=== PATIENT | male | born 1955 | race African-American/Black ===

== ENCOUNTER 2017-07-08 18:27 | Emergency (ER) | payer SELFPAY ==
[~2017-07-08] VITALS: Ht 172.7 cm; Wt 68.0 kg
[2017-07-08] MEDS ORDERED: PROPARACAINE 0.5% OPHTH SOLUTION 15ML BOTTLE. OU ONE (19:45)
[2017-07-08 21:14] LABS: BASO % 0 % (0-3); EOS % 1 % (0-3); HEMATOCRIT 42.4 % (39.0-53.0); HEMOGLOBIN 13.6 g/dL (13.0-17.5); LYMPH % 13 % (24-48); MEAN CORPUSCULAR HEMOGLOBIN 30 pg (25-35); MEAN CORPUSCULAR HGB CONC 32 g/dL (31-37); MEAN CORPUSCULAR VOLUME 92 fL (79-100); MONO % 8 % (0-9); NEUT % 78 % (31-73); PLATELET COUNT 256 x10^3/uL (140-400); RED CELL DISTRIBUTION WIDTH 13.1 % (11.5-14.5); WHITE BLOOD COUNT 7.6 x10^3/uL (4.0-11.0)
[2017-07-08 21:27] LABS: CALCIUM 8.8 mg/dL (8.5-10.1); CREATININE 0.9 mg/dL (0.7-1.3); GFR 103.1; POTASSIUM 4.1 mmol/L (3.5-5.1)
[2017-07-08 21:34] LABS: ALBUMIN 3.8 g/dL (3.4-5.0); TOTAL BILIRUBIN 0.5 mg/dL (0.2-1.0); TOTAL PROTEIN 7.5 g/dL (6.4-8.2)
--- NOTE | 2017-07-08 21:34 | PHYS DOC ---
Past Medical History Past Medical History: CVA, Glaucoma, Hypertension, MRSA, Other Additional Past Medical Histor: RESISUAL WEAKNESS RIGHT SIDE Past Surgical History: Other Additional Past Surgical Histo: R LEG ORIF Alcohol Use: Occasionally Drug Use: None Adult General Chief Complaint Chief Complaint: VISION PROBLEM HPI HPI Patient is a 61 year old with history of cva and dysarthria , presents with right eye pain and decreased vision since yesterday. Patient is unable to see 2 fingers at 2 feet out of right eye. Denies headache, jaw pain or temporal scalp pain. Denies chest pain palpitations or history of A. fib. Patient is not currently on treatment for glaucoma. Review of Systems Review of Systems ROS as per HPI. Current Medications Current Medications Current Medications Medications (Trade) Dose Ordered Sig/Anjelica Start Time Stop Time Status Last Admin Dose Admin Proparacaine HCl (Alcaine) 1 drop 1X ONCE 07/08/17 19:45 07/08/17 19:46 DC 07/08/17 20:05 1 DROP Allergies Allergies Allergies Coded Allergies Type Severity Reaction Last Updated Verified I S O L A T I O N *CONTACT* Allergy Unknown 07/12/15 Yes No Known Medication Allergies Allergy Unknown 07/12/15 Yes Physical Exam Physical Exam Constitutional: Well developed, well nourished, no acute distress, non-toxic appearance. [] HENT: Normocephalic, atraumatic, no temporal scalp tenderness bilateral external ears normal, oropharynx moist, no oral exudates, nose normal. [] Eyes: JOSELIN, consensual light reflex intact, right anterior chamber opacity. Negative funduscopic exam, right IOP, 24, left IOP 16 [] Neck: Normal range of motion, no tenderness, supple, no stridor. [] Cardiovascular:Heart rate regular rhythm, no murmur [] Lungs & Thorax: Bilateral breath sounds clear to auscultation [] Abdomen: Bowel sounds normal, soft, no tenderness, no masses, no pulsatile masses. [] Skin: Warm, dry, no erythema, no rash. [] Back: No tenderness. [] Extremities: No tenderness, ROM intact, no edema. [] Neurologic: Alert and oriented X 3, dysarthria [] Psychologic: Affect normal, judgement normal, mood normal. [] Current Patient Data Vital Signs Vital Signs Date Time Temp Pulse Resp B/P (MAP) Pulse Ox O2 Delivery O2 Flow Rate FiO2 07/08/17 19:10 98.2 75 20 141/81 (101) 96 Room Air 98.2 Lab Values Laboratory Tests Test 07/08/17 21:00 White Blood Count 7.6 x10^3/uL (4.0-11.0) Red Blood Count 4.60 x10^6/uL (4.30-5.70) Hemoglobin 13.6 g/dL (13.0-17.5) Hematocrit 42.4 % (39.0-53.0) Mean Corpuscular Volume 92 fL (79-100) Mean Corpuscular Hemoglobin 30 pg (25-35) Mean Corpuscular Hemoglobin Concent 32 g/dL (31-37) Red Cell Distribution Width 13.1 % (11.5-14.5) Platelet Count 256 x10^3/uL (140-400) Neutrophils (%) (Auto) 78 % (31-73) H Lymphocytes (%) (Auto) 13 % (24-48) L Monocytes (%) (Auto) 8 % (0-9) Eosinophils (%) (Auto) 1 % (0-3) Basophils (%) (Auto) 0 % (0-3) Neutrophils # (Auto) 5.9 x10^3uL (1.8-7.7) Lymphocytes # (Auto) 1.0 x10^3/uL (1.0-4.8) Monocytes # (Auto) 0.6 x10^3/uL (0.0-1.1) Eosinophils # (Auto) 0.1 x10^3/uL (0.0-0.7) Basophils # (Auto) 0.0 x10^3/uL (0.0-0.2) Laboratory Tests 07/08/17 21:00 EKG EKG [] Radiology/Procedures Radiology/Procedures [] Course & Med Decision Making Course & Med Decision Making Pertinent Labs and Imaging studies reviewed. (See chart for details) [Visual acuity basic is legally blind in right eye. Unable to see 20/200, but has light sensation department] Dragon Disclaimer Dragon Disclaimer This electronic medical record was generated, in whole or in part, using a voice recognition dictation system. Departure Departure Referrals: NO PCP (PCP) KIMBERLY PARKS DO Jul 08, 2017 21:34
[2017-07-08] MEDS ORDERED: IOHEXOL 300 MG/ML 75 ML VIAL IV ONE (22:15)
[2017-07-08] MEDS ORDERED: CONTRAST GIVEN MC PRN (22:15)
--- NOTE | 2017-07-08 22:51 | RAD ---
Indication: Right eye blurred vision. Previous stroke. Technique: Noncontrast CT head was obtained. Comparison MRI brain is from July 12, 2015. One or more of the following individualized dose reduction techniques were utilized for this examination: 1. Automated exposure control 2. Adjustment of the mA and/or kV according to patient size 3. Use of iterative reconstruction technique Findings: There has been expected evolution of the left posterior frontal infarct. There is no CT evidence of an acute infarct. There is no acute intracranial hemorrhage or extra-axial fluid collection. There is no mass effect or midline shift. There is prominence of the ventricles and sulci. There is no depressed skull fracture. Paranasal sinuses and mastoid air cells are clear. IMPRESSION: 1. No acute intracranial findings. 2. Old left frontal infarct. 3. Consider MRI if further workup is required. Electronically signed by: Vargas Dior MD (07/08/2017 10:48 PM) [facility]
[2017-07-08 23:45] VITALS: BP 151/92
--- NOTE | 2017-07-08 23:54 | RAD ---
Indication: Blurred vision, right eye. Previous stroke. Technique: CT angiogram head and neck includes axial images, maximum intensity projection reformatted images, and volume rendered imaging. 75 mL of intravenous Omnipaque [address] was [address] head from earlier today was reviewed in comparison. Measurements follow NASCET methodology. One or more of the following individualized dose reduction techniques were utilized for this examination: 1. Automated exposure control 2. Adjustment of the mA and/or kV according to patient size 3. Use of iterative reconstruction technique Findings: Neck: There is no brachiocephalic or subclavian narrowing, suboptimal contrast limits evaluation. There is limited evaluation of the right common carotid artery origin secondary to streak artifact from dense contrast in the adjacent vein. The evaluated right common carotid artery is without narrowing. There is mild plaquing at the right carotid bulb. There is no associated stenosis. Right internal carotid artery is without stenosis. Left internal carotid artery is also not well evaluated at its origin. Where evaluated, the left common carotid artery is normal caliber. There is plaquing at the left carotid bulb. 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 The left vertebral artery is dominant. No vertebral artery stenosis involving the cervical segments is identified. Proximal cervical segments are not evaluated secondary to streak artifact. Lung apices are clear. Lymph nodes along the cervical chains may be reactive. Head: Right cavernous carotid demonstrates plaquing but no significant narrowing. Right anterior and middle cerebral arteries are unremarkable. Anterior communicating artery supplies the left anterior cerebral artery. Left MCA is supplied via the anterior communicating artery and probably a posterior communicating artery. It is without focal stenosis although there is relative decreased arborization compared to the right, corresponds to the distribution of previous infarct. The vertebral arteries both supply the basilar artery. No posterior circulation stenosis or aneurysm is apparent. There is right greater than left maxillary mucosal thickening. There is ethmoid mucosal thickening. This exam overall is mildly degraded by suboptimal contrast bolus. IMPRESSION: 1. 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 The left anterior and middle cerebral arteries are reconstituted via the [place]. There is decreased arborization of the left middle cerebral artery when compared to the right, this corresponds to the previous left frontal infarct. 2. Minimal plaquing at the right carotid bulb without significant stenosis. 3. Plaquing in the right cavernous carotid without significant narrowing. 4. No intra-arterial thrombus is identified. Electronically signed by: Vargas Dior MD (07/08/2017 11:50 PM) [facility]
--- NOTE | 2017-07-09 07:01 | EKG ---
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
== END 2017-07-09 00:20 | disposition home or self-care (01) ==
LOC: ER 18:27
DX: H54.41 Blindness, right eye, normal vision left eye (principal); I10 Essential (primary) hypertension; H40.9 Unspecified glaucoma; Z86.73 Personal history of transient ischemic attack (TIA), and cerebral infarction without residual deficits; Z86.14 Personal history of Methicillin resistant Staphylococcus aureus infection; Z91.041 Radiographic dye allergy status
CPT/HCPCS: 36415; 70450; 70496; 70498; 80053; 85025; 93005; 99285; Q9967

== ENCOUNTER 2017-12-29 19:01 | Emergency (ER) | payer MEDICARE ==
[2017-12-29 22:06] LABS: ADD MAN DIFF? NO
[2017-12-29 22:11] LABS: BASO % 0 % (0-3); EOS # 0.1 x10^3/uL (0.0-0.7); EOS % 2 % (0-3); HEMATOCRIT 44.3 % (39.0-53.0); HEMOGLOBIN 14.2 g/dL (13.0-17.5); LYMPH # 0.9 x10^3/uL (1.0-4.8); LYMPH % 15 % (24-48); MEAN CORPUSCULAR HEMOGLOBIN 29 pg (25-35); MEAN CORPUSCULAR HGB CONC 32 g/dL (31-37); MEAN CORPUSCULAR VOLUME 89 fL (79-100); MONO # 0.5 x10^3/uL (0.0-1.1); MONO % 9 % (0-9); NEUT # 4.2 x10^3uL (1.8-7.7); NEUT % 74 % (31-73); PLATELET COUNT 262 x10^3/uL (140-400); RED BLOOD COUNT 4.96 x10^6/uL (4.30-5.70); RED CELL DISTRIBUTION WIDTH 13.8 % (11.5-14.5); WHITE BLOOD COUNT 5.7 x10^3/uL (4.0-11.0)
[2017-12-29] MEDS: cloNIDine HCL 0.1 MG TABLET PO ×2 (22:14→22:54)
[2017-12-29 22:22] LABS: ANION GAP 10 (6-14); BLOOD UREA NITROGEN 12 mg/dL (8-26); BUN/CREATININE RATIO 13 (6-20); CALCIUM 9.5 mg/dL (8.5-10.1); CARBON DIOXIDE 28 mmol/L (21-32); CHLORIDE 102 mmol/L (98-107); CREATININE 0.9 mg/dL (0.7-1.3); GFR 102.8; GLUCOSE 89 mg/dL (70-99); POTASSIUM 4.1 mmol/L (3.5-5.1); SODIUM 140 mmol/L (136-145)
[2017-12-29 22:28] LABS: ALBUMIN 4.2 g/dL (3.4-5.0); ALK PHOS 104 U/L (46-116); ALT (SGPT) 32 U/L (16-63); AST (SGOT) 18 U/L (15-37); TOTAL BILIRUBIN 0.7 mg/dL (0.2-1.0); TOTAL PROTEIN 8.4 g/dL (6.4-8.2)
[2017-12-29 22:31] LABS: TROPONINI < 0.017 ng/mL (0.000-0.055)
== END 2017-12-29 23:20 | disposition home or self-care (01) ==
LOC: ER 19:01
DX: R42 Dizziness and giddiness (principal); I10 Essential (primary) hypertension; Z86.73 Personal history of transient ischemic attack (TIA), and cerebral infarction without residual deficits; Z86.14 Personal history of Methicillin resistant Staphylococcus aureus infection; Z91.041 Radiographic dye allergy status
CPT/HCPCS: 36415; 70450; 80053; 84484; 85025; 93005; 99285-25

== ENCOUNTER 2018-04-08 09:41 | Emergency (ER) | payer OTHER ==
[2018-04-08] MEDS ORDERED: TETRACAINE 0.5% OPHTH SOLUTION 4ML BOTTLE. (10:04)
[2018-04-08] MEDS: TETRACAINE 0.5% OPHTH SOLUTION 4ML BOTTLE. OU (10:15)
[2018-04-08 10:33] LABS: ADD MAN DIFF? NO
[2018-04-08 10:46] LABS: BASO % 0 % (0-3); EOS # 0.1 x10^3/uL (0.0-0.7); EOS % 1 % (0-3); HEMATOCRIT 41.7 % (39.0-53.0); HEMOGLOBIN 13.5 g/dL (13.0-17.5); LYMPH # 1.1 x10^3/uL (1.0-4.8); LYMPH % 18 % (24-48); MEAN CORPUSCULAR HEMOGLOBIN 29 pg (25-35); MEAN CORPUSCULAR HGB CONC 32 g/dL (31-37); MEAN CORPUSCULAR VOLUME 89 fL (79-100); MONO # 0.7 x10^3/uL (0.0-1.1); MONO % 12 % (0-9); NEUT # 4.4 x10^3uL (1.8-7.7); NEUT % 70 % (31-73); PLATELET COUNT 286 x10^3/uL (140-400); RED BLOOD COUNT 4.71 x10^6/uL (4.30-5.70); RED CELL DISTRIBUTION WIDTH 13.4 % (11.5-14.5); WHITE BLOOD COUNT 6.3 x10^3/uL (4.0-11.0)
[2018-04-08 10:52] LABS: ANION GAP 10 (6-14); BLOOD UREA NITROGEN 15 mg/dL (8-26); CARBON DIOXIDE 25 mmol/L (21-32); CHLORIDE 104 mmol/L (98-107); GLUCOSE 105 mg/dL (70-99); POTASSIUM 4.1 mmol/L (3.5-5.1); SODIUM 139 mmol/L (136-145)
[2018-04-08 11:07] LABS: PARTIAL THROMBOPLASTIN TIME 32 SEC (24-38); PROTHROMBIN TIME PATIENT 13.1 SEC (11.7-14.0)
== END 2018-04-08 11:50 | disposition home or self-care (01) ==
LOC: ER 09:41
DX: H11.31 Conjunctival hemorrhage, right eye (principal); I10 Essential (primary) hypertension; Z86.14 Personal history of Methicillin resistant Staphylococcus aureus infection; Z86.73 Personal history of transient ischemic attack (TIA), and cerebral infarction without residual deficits
CPT/HCPCS: 36415; 70480; 80048; 85025; 85610; 85730; 93005; 99285-25

== ENCOUNTER 2018-12-16 11:14 | Emergency (ER) | payer MEDICARE, OTHER ==
[~2018-12-16] VITALS: Ht 172.7 cm; Wt 90.7 kg
[~2018-12-16 11:14] MED LIST: CLOP75TA57 PO; METO25TA4 PO
[2018-12-16 11:37] VITALS: BP 131/75
--- NOTE | 2018-12-16 12:46 | PHYS DOC ---
Past Medical History Past Medical History: Stroke Additional Past Medical Histor: RESIDUAL WEAKNESS RIGHT SIDE Past Surgical History: Other Additional Past Surgical Histo: R LEG ORIF Alcohol Use: Occasionally Drug Use: None Adult General Chief Complaint Chief Complaint: SKIN PROBLEM HPI HPI Patient is a 63 year old male who presents with left ear pain with tenderness over the top of the left ear on the scalp the last 5 days. Patient denies fever , nausea, vomiting, nasal congestion, throat pain, shortness of air, chest pain , diarrhea, dizziness, headache. Review of Systems Review of Systems Constitutional: Denies fever or chills [] Eyes: Denies change in visual acuity, redness, or eye pain [] HENT: Denies nasal congestion or sore throat [] Respiratory: Denies cough or shortness of breath [] Cardiovascular: No additional information not addressed in HPI [] GI: Denies abdominal pain, nausea, vomiting, bloody stools or diarrhea [] : Denies dysuria or hematuria [] Musculoskeletal: Denies back pain or joint pain [] Integument: Denies rash or skin lesions [] Neurologic: Denies headache, focal weakness or sensory changes [] Endocrine: Denies polyuria or polydipsia [] All other systems were reviewed and found to be within normal limits, except as documented in this note. Current Medications Current Medications Current Medications Medications (Trade) Dose Ordered Sig/Anjelica Start Time Stop Time Status Last Admin Dose Admin Fentanyl Citrate (Fentanyl 2ml Vial) 50 mcg 1X ONCE 12/16/18 13:00 12/16/18 13:00 DC Allergies Allergies Allergies Coded Allergies Type Severity Reaction Last Updated Verified I S O L A T I O N *CONTACT* Allergy Unknown 07/12/15 Yes No Known Medication Allergies Allergy Unknown 07/12/15 Yes Physical Exam Physical Exam Constitutional: Well developed, well nourished, no acute distress, non-toxic appearance. [] HENT: Normocephalic, atraumatic, bilateral external ears normal, oropharynx moist, no oral exudates, nose normal. [] Eyes: PERRLA, EOMI, conjunctiva normal, no discharge. [] Neck: Normal range of motion, no tenderness, supple, no stridor. [] Cardiovascular:Heart rate regular rhythm, no murmur [] Lungs & Thorax: Bilateral breath sounds clear to auscultation [] Abdomen: Bowel sounds normal, soft, no tenderness, no masses, no pulsatile masses. [] Skin: Warm, dry, no erythema, no rash. [] Back: No tenderness, no CVA tenderness. [] Extremities: No tenderness, no cyanosis, no clubbing, ROM intact, no edema. [] Neurologic: Alert and oriented X 3, normal motor function, normal sensory function, no focal deficits noted. [] Psychologic: Affect normal, judgement normal, mood normal. [] Current Patient Data Vital Signs Vital Signs Date Time Temp Pulse Resp B/P (MAP) Pulse Ox O2 Delivery O2 Flow Rate FiO2 12/16/18 11:37 98.3 66 18 131/75 (93) 98 Room Air 98.3 EKG EKG [] Radiology/Procedures Radiology/Procedures [] Course & Med Decision Making Course & Med Decision Making Patient is a 63 year old male who presents with left ear pain with tenderness over the top of the left ear on the scalp the last 5 days. Patient denies fever , nausea, vomiting, nasal congestion, throat pain, shortness of air, chest pain , diarrhea, dizziness, headache. Patient has tenderness to the scalp around the left ear. Left eardrum is reddened and tender with examination. Patient states the symptoms began on for 5 days. Vital signs are within normal limits. Lungs are clear to auscultation all lobes. Heart regular without murmur. Alert and oriented. Skin pink warm and dry. Mucous membranes are moist. Patient be treated for otitis media with an antibiotic. He is to follow-up with his primary care provider if not getting better. Dragon Disclaimer Dragon Disclaimer This electronic medical record was generated, in whole or in part, using a voice recognition dictation system. Departure Departure Impression: Primary Impression: Otitis media Disposition: 01 HOME, SELF-CARE Condition: STABLE Referrals: MERE COLLINS JR, MD (PCP) Patient Instructions: Otitis Media, Adult Additional Instructions: Follow up with primary care if not getting better. Take Tylenol or Ibuprofen for pain. Scripts Amoxicillin (AMOXICILLIN) 500 Mg Capsule 1 CAP PO BID for 10 Days, #20 CAP Prov: SB ZEPEDA APRN 12/16/18 Problem Qualifiers Primary Impression: Otitis media Otitis media type: unspecified Laterality: left Qualified Codes: H66.92 - Otitis media, unspecified, left ear SB ZEPEDA JOGGER OPERATOR Dec 16, 2018 12:46
[2018-12-16] MEDS ORDERED: AMOX500C PO (12:58)
[2018-12-16] MEDS ORDERED: fentaNYL PF VIAL 100 MCG/2 ML VIAL IV ONE (13:00)
== END 2018-12-16 13:05 | disposition home or self-care (01) ==
LOC: ER 11:14
DX: H66.92 Otitis media, unspecified, left ear (principal); R51 Headache; Z86.73 Personal history of transient ischemic attack (TIA), and cerebral infarction without residual deficits
CPT/HCPCS: 99283-25; 99284-25

== ENCOUNTER 2020-03-27 13:03 | Emergency (ER) | payer MEDICARE, OTHER ==
[~2020-03-27] VITALS: Ht 167.6 cm; Wt 81.8 kg
[~2020-03-27 13:03] MED LIST changes: +AMOX500C PO; +DICY20TA3 PO
[2020-03-27 13:40] VITALS: BP 144/86
[2020-03-27] MEDS ORDERED: AMOX875T PO (14:09)
--- NOTE | 2020-03-27 14:09 | PHYS DOC ---
Past Medical History Past Medical History: Stroke Additional Past Medical Histor: RESIDUAL WEAKNESS RIGHT SIDE Past Surgical History: Other Additional Past Surgical Histo: R LEG ORIF Smoking Status: Former Smoker Alcohol Use: Occasionally Drug Use: None General Adult EDM: Chief Complaint: EARACHE/EAR PAIN HPI: HPI: Patient is a 64 year old AA male who presents to the emergency department with complaints of left ear pain for the last 2 or 3 days. He denies any drainage, bleeding, or injury to the affected area. He denies any decreased hearing. Patient states that he has noticed that his right ear also hurts but not as bad as the left ear. He denies any fever, cough, shortness of breath, rash, nausea, vomiting, diarrhea, abdominal pain, back pain, fatigue, or body aches. He currently rates the pain a 5 out of 10 on the pain scale, he denies any alleviating factors. Review of Systems: Review of Systems: Constitutional: Denies fever or chills. [] Eyes: Denies change in visual acuity. [] HENT: Denies nasal congestion or sore throat, see HPI. [] Respiratory: Denies cough or shortness of breath. [] Cardiovascular: Denies chest pain or edema. [] GI: Denies abdominal pain, nausea, vomiting, bloody stools or diarrhea. [] : Denies dysuria. [] Musculoskeletal: Denies back pain or joint pain. [] Integument: Denies rash. [] Neurologic: Denies headache, focal weakness or sensory changes. [] Lymphatic: Denies swollen glands. [] Psychiatric: Denies depression or anxiety. [] Heart Score: Risk Factors: Risk Factors: DM, Current or recent (<one month) smoker, HTN, HLP, family history of CAD, obesity. Risk Scores: Score 0 - 3: 2.5% MACE over next 6 weeks - Discharge Home Score 4 - 6: 20.3% MACE over next 6 weeks - Admit for Clinical Observation Score 7 - 10: 72.7% MACE over next 6 weeks - Early Invasive Strategies Allergies: Allergies: Allergies Coded Allergies Type Severity Reaction Last Updated Verified I S O L A T I O N *CONTACT* Allergy Unknown 07/12/15 Yes No Known Medication Allergies Allergy Unknown 07/12/15 Yes Physical Exam: PE: Constitutional: Well developed, well nourished, no acute distress, non-toxic appearance. [] HENT: Normocephalic, atraumatic, bilateral external ears normal, left TM infected with erythema and slight bulging of the eardrum on the medial edge no perforation, right TM normal, oropharynx moist, no oral exudates, nose normal. [] Eyes: PERRLA, EOMI, conjunctiva normal, no discharge. [] Neck: Normal range of motion, no stridor. [] Cardiovascular:Heart rate regular rhythm Lungs & Thorax: Respirations even and unlabored, no retractions, lungs clear in all [place] Skin: Warm, dry, no erythema, no rash. [] Extremities: No cyanosis, ROM intact, no edema. [] Neurologic: Alert and oriented X 3, no focal deficits noted. [] Psychologic: Affect normal, judgement normal, mood normal. [] Current Patient Data: Vital Signs: Vital Signs Date Time Temp Pulse Resp B/P (MAP) Pulse Ox O2 Delivery O2 Flow Rate FiO2 03/27/20 13:40 97.5 68 18 144/86 (105) 98 Room Air 97.5 EKG: EKG: [] Radiology/Procedures: Radiology/Procedures: [] Course & Med Decision Making: Course & Med Decision Making Pertinent Labs and Imaging studies reviewed. (See chart for details) [] Dragon Disclaimer: Dragon Disclaimer: This electronic medical record was generated, in whole or in part, using a voice recognition dictation system. Departure Departure Impression: Primary Impression: Acute suppur left otitis media w/o spontan rupture tympanic membrane Qualified Codes: H66.002 - Acute suppurative otitis media without spon taneous rupture of ear drum, left ear Disposition: 01 HOME, SELF-CARE Condition: STABLE Referrals: MERE COLLINS JR, MD (PCP) Patient Instructions: Otitis Media, Adult, [id number] Additional Instructions: Fill the prescription(s) and use as directed. Alternate Tylenol and ibuprofen as needed for fever. Follow-up with your primary care doctor in 1 to 2 days to have the ears rechecked, return to the ER if symptoms worsen Scripts Amoxicillin (AMOXICILLIN) 875 Mg Tablet 1 TAB PO BID for 10 Days, #20 TAB 0 Refills Prov: ELIZABETH WOOD APRN 03/27/20 Justicifation of Admission Dx: Justifications for Admission: Justification of Admission Dx: N/A ELIZABETH WOOD APRN Mar 27, 2020 14:09
== END 2020-03-27 14:15 | disposition home or self-care (01) ==
LOC: ER 13:03
DX: H66.002 Acute suppurative otitis media without spontaneous rupture of ear drum, left ear (principal); L53.9 Erythematous condition, unspecified; I25.2 Old myocardial infarction; Z98.890 Other specified postprocedural states; Z87.891 Personal history of nicotine dependence; Z88.8 Allergy status to other drugs, medicaments and biological substances
CPT/HCPCS: 99283

== ENCOUNTER 2021-12-15 09:55 | Day surgery (SDC) | payer MEDICARE, OTHER ==
[~2021-12-15 09:55] MED LIST changes: +AMOX875T PO; +BALANCED SALT IRRIG OPHTH SOLN 15 ML BOTTLE. ONE; +DEXAMETHASONE SOD PHOS 4 MG/ML VIAL ONE; +DICY20TA PO; -DICY20TA3 PO; +HYALURONIDASE, HUMAN RECOMB. 150 UNIT/ML VIAL. IJ ONE; +HYDROmorphone 2 MG/ML INJ. IVP PRN; +IV RINGERS,LACTATED 1000ML 1,000 ML IV SCH; +LIDOCAINE 2% JELLY 6ML IN APPLICATOR. ONE; +MORPHINE SULFATE 2 MG/ML INJ. IVP PRN; +PROCHLORPERAZINE 10 MG/2 ML VIAL. IVP PRN; +fentaNYL PF VIAL 100 MCG/2 ML VIAL IVP PRN
[2021-12-15] MEDS ORDERED: LIDOCAINE 1%/PHENYLEPH 1.5% PF OPHTH 1 ML VIAL. ONE ×2 (11:20)
[2021-12-15] MEDS ORDERED: fentaNYL PF VIAL 100 MCG/2 ML VIAL ONE (12:19)
[2021-12-15] MEDS ORDERED: LIDOCAINE 2% PF 5 ML VIAL. ONE (12:19)
[2021-12-15] MEDS ORDERED: LIDOCAINE 2%/EPI 1:100,000 20 ML VIAL. ONE (12:20)
[2021-12-15] MEDS ORDERED: PROPOFOL 10 MG/ML (20ML) VIAL. IV ONE (12:24)
[2021-12-15] MEDS ORDERED: NEO/POLYMYX/DEXAMETH OPHTH OINTMENT 3.5GM TUBE. ONE (12:47)
[2021-12-15 13:22] VITALS: BP 139/80
--- NOTE | 2021-12-15 14:30 | OP ---
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 PROCEDURE: MicroPulse translaser treatment of the left eye. INDICATIONS: Maximally tolerated medications and elevated pressures with visual field loss. SURGEON: Hernan Saleh MD. ANESTHESIA: General. DESCRIPTION OF PROCEDURE: Lidocaine jelly was placed on the left eye and the settings in the laser were adjusted to 2500 milliwatts with 31.3% duty cycle and 10 seconds per quadrant sweep with 5 sweeps per quadrant. Therefore, the total number of seconds was 200 seconds for the left eye at 2500 milliwatts. The sweep speed was 10 seconds per quadrant during this procedure. At the conclusion, dexamethasone 4 mg/mL was placed on a TB syringe in the inferior quadrants of the subconjunctival area and Maxitrol was placed and the patient was sent to the recovery room uneventfully. He was asked to follow up within 1-2 weeks and resume his glaucoma drops along with Pred Forte 3 times a day and call sooner for any questions or concerns. APRYL DR: Ck TID: [id number]
== END 2021-12-15 13:30 | disposition home or self-care (01) ==
LOC: SURG 09:55
PROVIDERS: ATTEND Ophthalmology
DX: H40.10X3 Unspecified open-angle glaucoma, severe stage (principal); I10 Essential (primary) hypertension; E78.00 Pure hypercholesterolemia, unspecified; K21.9 Gastro-esophageal reflux disease without esophagitis; Z79.899 Other long term (current) drug therapy; Z87.891 Personal history of nicotine dependence; Z98.890 Other specified postprocedural states; Z72.89 Other problems related to lifestyle
CPT/HCPCS: 66710; A4930; A6410; J1100; J2704; J3010; J3470; J3490